=== PATIENT | female | born 1970 | race Caucasian/White ===

== ENCOUNTER → 2018-05-31 15:01 | Outpatient (CLI) | payer OTHER, SELFPAY ==
--- NOTE | 2018-05-31 | DI.MG.S_ITS ---
BILATERAL DIGITAL SCREENING MAMMOGRAM 3D/2D WITH CAD: 05/31/2018 CLINICAL: Routine screening. Comparison is made to exams dated: 05/12/2017 mammogram, 03/17/2016 mammogram, and 03/06/2015 mammogram - [facility]. There are scattered fibroglandular elements in both breasts. Current study was also evaluated with a Computer Aided Detection (CAD) system. No significant masses, calcifications, or other findings are seen in either breast. There has been no significant interval change. IMPRESSION: NEGATIVE There is no mammographic evidence of malignancy. A 1 year screening mammogram is recommended.(06/01/2019) This exam was interpreted at Station ID: [id number]. NOTE: For mammograms, a report in lay terms will be sent to the patient. Approximately 15% of breast malignancies will not be visualized mammographically. In the management of a palpable breast mass, a negative mammogram must not discourage biopsy of a clinically suspicious lesion. Electronically Signed By: Je turner/leno:06/01/2018 05:00:32 letter sent: Normal Exam ACR BI-RADS Category 1: Negative 3341F
== END ==
PROVIDERS: PCP Physician Assistant; Visit Provider Physician Assistant
DX: Z12.31 Encounter for screening mammogram for malignant neoplasm of breast (principal)
CPT/HCPCS: 77063; 77067

== ENCOUNTER → 2020-03-12 11:58 | Outpatient (CLI) | payer OTHER, SELFPAY ==
[2020-03-12 14:13] LABS: TSH w/ Reflex to FT4 1.55 uIU/mL (0.47-4.68)
[2020-03-16 18:36] LABS: Estrogen 112 pg/mL (.)
== END ==
PROVIDERS: PCP Nurse Practitioner Family; Referring Provider Nurse Practitioner Family; Visit Provider Nurse Practitioner Family
DX: N93.9 Abnormal uterine and vaginal bleeding, unspecified (principal); R10.2 Pelvic and perineal pain
CPT/HCPCS: 36415; 82672; 83001; 84443

== ENCOUNTER → 2020-03-17 07:44 | Outpatient (CLI) | payer OTHER, SELFPAY ==
--- NOTE | 2020-03-17 07:45 | DI.US.S_ITS ---
PROCEDURE: US ABDOMEN COMPLETE INDICATIONS: LLQ tenderness TECHNIQUE: Real-time scanning was performed of the abdominal and retroperitoneal organs, with image documentation. COMPARISON: [facility], US, US PELVIC COMPLETE, 03/17/2020, 8:14. FINDINGS: Liver: The liver demonstrates normal size. The liver demonstrates generalized mildly increased echogenicity. This decreases ultrasound sensitivity for detection of hepatic masses. Gallbladder: No findings of gallstones or sludge are seen. The gallbladder wall is not thickened, measuring 3 mm or less. No specific pericholecystic fluid is seen. The sonographic Rhodes sign is negative. Biliary ducts: Intrahepatic bile ducts are non-dilated. Extrahepatic bile duct caliber measures 3.5 mm. Normal is 6-7 mm or less in diameter, or 10 mm or less post-cholecystectomy. Pancreas: Visualized portions of the pancreas are sonographically normal. Spleen: Spleen is normal in size and homogeneous in echotexture. Kidneys: Kidneys are normal in size and echotexture. Right kidney measures 10.8 cm long; left kidney measures 11.6 cm long. No hydronephrosis or nephrolithiasis. No solid masses. Aorta: Visualized aorta is normal in caliber at less than 3 cm. Iliacs: Proximal common iliac arteries are normal in caliber at less than 2.5 cm. IVC: Intrahepatic inferior vena cava is patent. Miscellaneous: No free abdominal fluid. IMPRESSION: Mild fatty liver infiltration. Otherwise, unremarkable abdominal ultrasound. Dictated by: Ilya Dolan M.D. on 03/17/2020 at 9:41 Approved by: Ilya Dolan M.D. on 03/17/2020 at 9:42
--- NOTE | 2020-03-17 07:45 | DI.US.S_ITS ---
PROCEDURE: US PELVIC COMPLETE INDICATIONS: LLQ tenderness TECHNIQUE: Real-time scanning was performed of the pelvic organs, with image documentation. Additional endovaginal scanning was necessary due to incomplete visualization of the adnexal and endometrial structures by transabdominal scanning. COMPARISON: [facility], US, US ABDOMEN COMPLETE, 03/17/2020, 7:55. FINDINGS: Transabdominal scanning: No pathologic free abdominal or pelvic fluid. On the accompanying abdominal ultrasound, the kidneys demonstrate a normal appearance. Endovaginal scanning: Uterus: Uterus is normal in size at 7.7 x 4.3 x 5.1 cm. The endometrium measures 6 mm in combined thickness. Ovaries: The right ovary is not seen. The left ovary measures 3.3 x 1.2 x 1.7 cm and demonstrates a simple cyst without abnormal vascularity that measures up to 1.7 cm, which is considered to be within physiologic limits. No adnexal masses are seen on either side. IMPRESSION: Normal pelvic ultrasound. Dictated by: Ilya Dolan M.D. on 03/17/2020 at 9:42 Approved by: Ilya Dolan M.D. on 03/17/2020 at 9:43
== END ==
PROVIDERS: PCP Nurse Practitioner Family; Referring Provider Nurse Practitioner Family; Visit Provider Nurse Practitioner Family
DX: N93.9 Abnormal uterine and vaginal bleeding, unspecified (principal); R10.2 Pelvic and perineal pain; R10.32 Left lower quadrant pain; K76.0 Fatty (change of) liver, not elsewhere classified; N83.292 Other ovarian cyst, left side
CPT/HCPCS: 76700; 76830; 76856

== ENCOUNTER → 2020-03-20 08:21 | Outpatient (CLI) | payer OTHER, SELFPAY ==
--- NOTE | 2020-03-20 | DI.MG.S_ITS ---
BILATERAL DIGITAL SCREENING MAMMOGRAM 3D/2D WITH CAD: 03/20/2020 CLINICAL: Routine screening. Comparison is made to exams dated: 05/31/2018 mammogram, 05/12/2017 mammogram, and 03/17/2016 mammogram - [facility]. There are scattered fibroglandular elements in both breasts. Current study was also evaluated with a Computer Aided Detection (CAD) system. No significant masses, calcifications, or other findings are seen in either breast. There has been no significant interval change. IMPRESSION: NEGATIVE There is no mammographic evidence of malignancy. A 1 year screening mammogram is recommended. This exam was interpreted at Station ID: [id number]. NOTE: For mammograms, a report in lay terms will be sent to the patient. Approximately 15% of breast malignancies will not be visualized mammographically. In the management of a palpable breast mass, a negative mammogram must not discourage biopsy of a clinically suspicious lesion. Electronically Signed By: Marco Antonio [email or web address]/leno:03/20/2020 08:50:45 letter sent: Normal Exam ACR BI-RADS Category 1: Negative 3341F
== END ==
PROVIDERS: PCP Nurse Practitioner Family; Referring Provider Nurse Practitioner Family; Visit Provider Nurse Practitioner Family
DX: Z12.31 Encounter for screening mammogram for malignant neoplasm of breast (principal)
CPT/HCPCS: 77063; 77067

== ENCOUNTER → 2022-10-26 13:46 | Outpatient (CLI) | payer OTHER, SELFPAY ==
--- NOTE | 2022-10-26 16:47 | DIET.PN1 ---
Dietary Progress Note 52 y/o F presenting with pre diabetes (A1c in range), high TG and LDL cholesterol.? Hx: during , pt was borderline GDM. DM2 runs in family. 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 Lives with spouse and son (22 y/o). PA: ?good exercise routine.? At least 30 min yoga daily (last 4 months) - pt reports feeling calmer and a little stronger. On feet all day, over 10,000 steps/day. Will do indoor cycling and wt training. Hiking on weekend.? Wt hx: does not fluctuate a ton. 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 Diet recall: 5 am yoga, coffee (espresso, SF syrup, half and half) B: cereal with almond milk OR half bagel OR half Tristanian muffin with PB or butter S: kind bar if hungry L: (noon or 2-3) kind bar and apple OR healthy choice rice bowl OR leftovers? S: kind bar OR bag of apples (convince items) S: chips D: usually meat and starch OR soup with lots of vegetables OR steak with saut?ed vegetables OR fish with vegetable S: Chips, oreos. No ETOH, no snacks ETOH: 6-8 drinks in a week. Whiskey with diet coke. Pt focuses on rice based meals and low carb. Does not like pasta or dairy milk. Pt has a shelf at work with granola bars, instant mac and cheese, oatmeal packets. Grocery shops once a week. Does have a refrigerator at work. cooks dinner. Barriers: son and can eat anything and buy which are all temptations.? Heart burn trigger foods: wine, onion, garlic, heavier foods. Diagnosis: Altered nutrition related laboratory values (high A1c, TG, LDL cholesterol) r/t nutrition knowledge deficit aeb pre diabetes diagnosis, diet recall revealing high CHO intake that does not support pre DM2 diagnosis, family hx of DM2.? Interventions:? 1. Educated pt on pre and DM2 - how foods impact our bodies (including TG levels), label reading. Discussed the importance of choosing meals and snacks with CHO and protein to support BG levels. 2. Educated pt on carb counting using handout. Recc consuming 1 CHO (15 g) choice per snack and 2-3 CHO (30-45 g) choices per meal. 3. Recc 10 minute walks after meals to support BG.? 4. Educated pt on the benefits of increasing fiber - stabling BP, decrease LDL cholesterol, support healthy gut bacteria, wt loss support, and feeling full longer. Recc 21 g/day. Discussed sources of fiber.? 5. Educated pt on intuitive eating using the hunger scale. Recc not being under/over full.? 6. Collaborated with pt on snack and meal ideas.? F/u in 6 weeks to continue education and problem solve barriers. Electronically Signed by: Yessi Greene 10/26/22 16:47 Clinical Dietitian [address] [address]
== END ==
PROVIDERS: PCP Registered Nurse; Referring Provider Registered Nurse; Visit Provider Registered Nurse
DX: R73.03 Prediabetes (principal); Z71.3 Dietary counseling and surveillance; E78.9 Disorder of lipoprotein metabolism, unspecified
CPT/HCPCS: 97802

== ENCOUNTER → 2022-12-20 12:44 | Outpatient (CLI) | payer OTHER, SELFPAY ==
--- NOTE | 2022-12-23 14:13 | DIET.OUTPTC ---
Dietary Outpatient Consultation Note Consultation Date: 12/20/2022 52 y/o F presenting for f/u with pre diabetes.? 2 months since last appointment. Believes she needs to readjust mindset. Gets overwhelmed and eating/nutrition gets put off. Has been struggling with the hunger scale. Pt would like to chart for accountability and to find trends. Wants to maybe revisit a smaller meal plan. Reports feeling full hours after dinner which affects sleep.? Has been trying to eat more legumes, less red meat Wants to stick with smoothie at breakfast because easy and on the go.? Diet Recall:? B: Coffee and smoothie (PB power, 1/2 banana, 2 Tbsp low sugar yogurt, almond milk, ruggiero, frozen peach, pineapple or loga) L: salad with garbanzo beans, nuts, etc.? S: cottage cheese and apple. D: 5:30-6:30. Bed: 9 pm Fluid: tea in afternoons and evenings, 1-2 night a week of ETOH, pom juice with sparking water. Refrigerator at work: apples, carrots, ranch dressing. Intervention: 1. Recommended focusing on keep work refrigerator stocked with fresh foods.? 2. Discussed potential barriers to the hunger scale. 3. Suggested various charts and journals for tracking.? 4. Recommended lunch being the largest meal, smaller plates at dinner.? F/u in February.? Electronically Signed by: Yessi Greene 12/23/22 14:13 Clinical Dietitian [address] [address]
== END ==
PROVIDERS: PCP Registered Nurse; Referring Provider Registered Nurse; Visit Provider Registered Nurse
DX: R73.03 Prediabetes (principal); Z71.3 Dietary counseling and surveillance
CPT/HCPCS: 97803

== ENCOUNTER → 2023-06-25 15:32 | Outpatient (CLI) | payer OTHER, SELFPAY ==
--- NOTE | 2023-06-25 15:34 | DI.MG.S_ITS ---
BILATERAL DIGITAL SCREENING MAMMOGRAM 3D/2D WITH CAD: 06/25/2023 CLINICAL: Routine screening. Comparison is made to exams dated: 01/18/2022 mammogram - [facility], 03/20/2020 mammogram, 05/31/2018 mammogram, and 05/12/2017 mammogram - [facility]. There are scattered areas of fibroglandular density in both breasts (category b / 25%-50% glandular tissue). Current study was also evaluated with a Computer Aided Detection (CAD) system. No significant masses, calcifications, or other findings are seen in either breast. There has been no significant interval change. IMPRESSION: NEGATIVE There is no mammographic evidence of malignancy. A 1 year screening mammogram is recommended. Based on the Tyrer Cuzick model (a risk assessment model) the patient's lifetime risk is 8.2% and her 10 year risk is 2.1%. According to the ACR, ACS, and NCCN guidelines, an annual breast MRI exam along with mammogram is recommended if the patient's lifetime risk is 20% or greater. This exam was interpreted at Station ID: [id number]. NOTE: For mammograms, a report in lay terms will be sent to the patient. Approximately 15% of breast malignancies will not be visualized mammographically. In the management of a palpable breast mass, a negative mammogram must not discourage biopsy of a clinically suspicious lesion. Electronically Signed By: John linda/leno:06/27/2023 18:10:50 letter sent: Normal Exam ACR BI-RADS Category 1: Negative 3341F
== END ==
PROVIDERS: PCP Registered Nurse; Referring Provider Registered Nurse; Visit Provider Registered Nurse
DX: Z12.31 Encounter for screening mammogram for malignant neoplasm of breast (principal)
CPT/HCPCS: 77063; 77067

== ENCOUNTER → 2024-07-14 07:45 | Outpatient (CLI) | payer OTHER, SELFPAY ==
[2024-07-14 08:50] LABS: Add Manual Diff / Slide Review NO; Basophils Absolute Auto 0 /uL (0-100); Basophils Percent Auto 0.4 % (0-2); Eosinophils Absolute Auto 100 /uL (0-450); Eosinophils Percent Auto 1.5 % (2-4); Hemoglobin 14.1 g/dL (12.0-16.0); Lymphocytes Absolute Auto 3000 /uL (1100-4500); Lymphocytes Percent Auto 32.9 % (25-40); Mean Corpuscular HGB Conc 33.5 % (30-36); Mean Corpuscular Hemoglobin 30.4 PG (26-34); Monocytes Absolute Auto 400 /uL (0-900); Monocytes Percent Auto 4.6 % (3-14); Neutrophils Absolute Auto 5500 /uL (1500-7000); Neutrophils Percent Auto 60.6 % (50-75); Platelet Count 473 X10^3/uL (150-400); Red Blood Cell Count 4.62 X10^6/uL (4.0-5.2); Red Cell Distribution Width 12.7 % (11.6-14.8)
[2024-07-14 09:21] LABS: Alanine Aminotransferase 24 IU/L (<35); Albumin 4.3 g/dL (3.5-5.0); Albumin Globulin Ratio 1.5 (1.0-2.8); Alkaline Phosphatase 91 U/L (38-126); Aspartate Aminotransferase 22 IU/L (14-36); Bilirubin Total 0.5 mg/dL (0.2-1.3); Blood Urea Nitrogen 16 mg/dL (7-17); Calcium 9.5 mg/dL (8.4-10.2); Carbon Dioxide 28 mmol/L (22-32); Chloride 104 mmol/L (98-107); Cholesterol 226 mg/dL (140-199); Estimated Glomerular Filt Rate > 60 mL/min (>60); Globulin 2.8 g/dL (1.7-4.1); Glucose 112 mg/dL (70-100); HDL Cholesterol 42 mg/dL (40-60); HEMOLYSIS < 15 (0-50); LDL Cholesterol Calculated 158 mg/dL (<100); Sodium 138 mmol/L (137-145); Total Protein 7.1 g/dL (6.3-8.2); Triglycerides 131 mg/dL (35-150)
[2024-07-14 09:32] LABS: Free T3, Triiodothyronine Free 3.62 pg/mL (2.77-5.27); Free T4, Direct Thyroxine 1.15 ng/dL (0.78-2.19)
[2024-07-14 09:46] LABS: Thyroid Stimulating Hormone 1.38 uIU/mL (0.47-4.68)
[2024-07-15 08:10] LABS: Apolipoprotein B 121 mg/dL (<90); Insulin Level Total 11.1 uIU/mL (2.6-24.9)
[2024-07-16 16:11] LABS: Anti Thyroglobulin Antibody <1.0 IU/mL (0.0-0.9); Thyroid Peroxidase Antibodies <9 IU/mL (0-34)
== END ==
PROVIDERS: PCP Registered Nurse; Referring Provider Naturopath; Visit Provider Naturopath
DX: Z00.00 Encounter for general adult medical examination without abnormal findings (principal); E78.00 Pure hypercholesterolemia, unspecified; R73.03 Prediabetes; R53.83 Other fatigue
CPT/HCPCS: 36415; 80053; 80061; 82172; 83036; 83525; 83695; 84439; 84443; 84481; 85025; 86376; 86800

== ENCOUNTER → 2024-08-11 07:45 | Outpatient (CLI) | payer OTHER, SELFPAY ==
--- NOTE | 2024-08-11 | DI.MG.S_ITS ---
BILATERAL DIGITAL SCREENING MAMMOGRAM 3D/2D WITH CAD: 08/11/2024 CLINICAL: Routine screening. Comparison is made to exams dated: 06/25/2023 mammogram - [facility], 01/18/2022 mammogram - [facility], and 03/20/2020 mammogram - [facility]. There are scattered areas of fibroglandular density (category b / 25%-50% glandular tissue). Current study was also evaluated with a Computer Aided Detection (CAD) system. No significant masses, calcifications, or other findings are seen in either breast. There has been no significant interval change. IMPRESSION: NEGATIVE There is no mammographic evidence of malignancy. A 1 year screening mammogram is recommended. Based on the Tyrer Cuzick model (a risk assessment model) the patient's lifetime risk is 8.1% and her 10 year risk is 2.2%. According to the ACR, ACS, and NCCN guidelines, an annual breast MRI exam along with mammogram is recommended if the patient's lifetime risk is 20% or greater. This exam was interpreted at Station ID: [id number]. NOTE: For mammograms, a report in lay terms will be sent to the patient. Approximately 15% of breast malignancies will not be visualized mammographically. In the management of a palpable breast mass, a negative mammogram must not discourage biopsy of a clinically suspicious lesion. Electronically Signed By: Marco Antonio cortes/leno:08/13/2024 07:29:45 letter sent: Normal Exam ACR BI-RADS Category 1: Negative
== END ==
PROVIDERS: PCP Naturopath; Referring Provider Naturopath; Visit Provider Naturopath
DX: Z12.31 Encounter for screening mammogram for malignant neoplasm of breast (principal)
CPT/HCPCS: 77063; 77067

== ENCOUNTER → 2024-12-08 07:54 | Outpatient (CLI) | payer OTHER, SELFPAY ==
[2024-12-08 08:52] LABS: Add Manual Diff / Slide Review NO; Basophils Absolute Auto 0 /uL (0-100); Basophils Percent Auto 0.6 % (0-2); Eosinophils Absolute Auto 100 /uL (0-450); Eosinophils Percent Auto 1.5 % (2-4); Hemoglobin 13.8 g/dL (12.0-16.0); Lymphocytes Absolute Auto 3100 /uL (1100-4500); Lymphocytes Percent Auto 39.2 % (25-40); Mean Corpuscular HGB Conc 33.6 % (30-36); Mean Corpuscular Hemoglobin 30.1 PG (26-34); Mean Corpuscular Volume 89.5 fL (80-100); Monocytes Absolute Auto 400 /uL (0-900); Monocytes Percent Auto 4.6 % (3-14); Neutrophils Absolute Auto 4200 /uL (1500-7000); Neutrophils Percent Auto 54.1 % (50-75); Platelet Count 452 X10^3/uL (150-400); Red Blood Cell Count 4.58 X10^6/uL (4.0-5.2); Red Cell Distribution Width 13.3 % (11.6-14.8); White Blood Cell Count 7.8 X10^3/uL (4.5-11.0)
[2024-12-08 08:57] LABS: Cholesterol 205 mg/dL (140-199); HDL Cholesterol 36 mg/dL (40-60); LDL Cholesterol Calculated 149 mg/dL (<100); Triglycerides 99 mg/dL (35-150)
[2024-12-08 08:59] LABS: Hemoglobin A1C% w Est Avg Glu 5.5 % (4.0-6.0)
== END ==
PROVIDERS: PCP Registered Nurse; Referring Provider Naturopath; Visit Provider Naturopath
DX: E78.00 Pure hypercholesterolemia, unspecified (principal); R73.03 Prediabetes; D75.838 Other thrombocytosis
CPT/HCPCS: 36415; 80061; 83036; 85025

== ENCOUNTER → 2025-09-03 15:08 | Outpatient (CLI) | payer OTHER, SELFPAY ==
--- NOTE | 2025-09-03 15:11 | DI.MG.S_ITS ---
MM screening mammo BI: 09/03/2025. BI-RADS: 1 CLINICAL: 55-year old female for bilateral screening mammogram. Tyrer-Cuzick lifetime risk of 8.0%. No personal or first-degree family history of breast cancer. PRIOR EXAMS 08/11/2024, 06/25/2023, 01/18/2022, 03/20/2020, MAMMOGRAPHY TECHNIQUE: 2D and 3D (tomosynthesis) digital mammographic views obtained, with additional images as needed for full coverage. Current study was also evaluated with a Computer Aided Detection (CAD) system. DENSITY B. There are scattered areas of fibroglandular density. MAMMOGRAPHY FINDINGS Bilateral: No suspicious mass, asymmetry, microcalcification, or other abnormality seen. IMPRESSION: * No evidence of malignancy. RECOMMENDATIONS Bilateral * Annual screening mammography. OVERALL ASSESSMENT CATEGORY BI-RADS-1: Negative. The [employer] recommends annual screening mammography beginning at age 40 for women with average risk of breast cancer. ELECTRONICALLY SIGNED: Aditi Pavon M.D. on 09/07/2025 at 01:31:47 AM PT Interpreting Station ID: [id number]
== END ==
LOC: MAMMO 15:10
PROVIDERS: PCP Registered Nurse; Referring Provider Registered Nurse; Visit Provider Registered Nurse
DX: Z12.31 Encounter for screening mammogram for malignant neoplasm of breast (principal)
CPT/HCPCS: 77063; 77067